=== PATIENT | female | born 1990 | race Caucasian/White ===

== ENCOUNTER 2016-12-12 07:20 | Emergency (ER) | payer OTHER ==
[~2016-12-12] VITALS: Ht 165.1 cm; Wt 59.0 kg
[~2016-12-12 07:20] MED LIST: AUGMENTIN 500-1 EACH PO
[2016-12-12 07:24] VITALS: BP 118/74
--- NOTE | 2016-12-12 07:51 | ED GENERAL ADULT ---
History of Present Illness General Chief Complaint: General Adult Stated Complaint: 2ND RABIES SHOT Source: patient Exam Limitations: no limitations Vital Signs & Intake/Output Vital Signs & Intake/Output Vital Signs Date Time Temp Pulse Resp B/P B/P Pulse O2 O2 Flow FiO2 Mean Ox Delivery Rate 12/12 0724 97.3 93 20 118/74 99 Room Air Allergies Coded Allergies: azithromycin (Severe, HIVES 12/09/16) Reconcile Medications Augmentin (Augmentin 500-125 Tablet) 500 MG-125 MG TABLET 1 TAB PO BID cat bite Triage Note: PT HERE FOR 2ND RABIES SHOT. Triage Nurses Notes Reviewed? yes : No Patient currently breastfeeds: No HPI: 12/12/16 8 AM 26-year-old female here for rabies vaccination. The patient is status post cat bite to the right thumb and left index finger. She has no complaints. The onset of the symptoms was abrupt, the duration has been in the last week, the severity is significant as her symptoms required her to come to the emergency department for care. Past History Travel History Traveled to [place] past 21 day No Medical History Any Pertinent Medical History? see below for history Neurological: NONE EENT: NONE Cardiovascular: NONE Respiratory: NONE Gastrointestinal: GERD Hepatic: NONE Renal: NONE Musculoskeletal: NONE Psychiatric: GENERALIZED ANXIETY Endocrine: NONE Blood Disorders: NONE Cancer(s): NONE Surgical History Surgical History: non-contributory Psychosocial History What is your primary language Tristanian Tobacco Use: Never used ETOH Use: occasional use Illicit Drug Use: denies illicit drug use Family History Hx Contributory? No Review of Systems Review of Systems Constitutional: Reports: no symptoms. EENTM: Reports: no symptoms. Respiratory: Reports: no symptoms. Cardiovascular: Reports: no symptoms. GI: Reports: no symptoms. Genitourinary: Reports: no symptoms. Musculoskeletal: Reports: no symptoms. Skin: Reports: see HPI. Neurological/Psychological: Reports: no symptoms. Hematologic/Endocrine: Reports: no symptoms. Immunologic/Allergic: Reports: no symptoms. All Other Systems: Reviewed and Negative Physical Exam Physical Exam General Appearance: well developed/nourished, no apparent distress, alert, awake Head: normal appearance Eyes: Bilateral: normal appearance, PERRL. Ears, Nose, Throat: normal ENT inspection Neck: normal inspection Respiratory: no respiratory distress Back: normal range of motion Extremities: Punctate abrasions to the right thumb and left index finger Neurologic/Psych: no motor/sensory deficits, awake, alert, oriented x 3 Skin: intact, normal color, warm/dry Core Measures ACS in differential dx? No CVA/TIA Diagnosis: No Severe Sepsis Present: No Septic Shock Present: No Progress Differential Diagnoses I considered the following diagnoses in my evaluation of the patient: [Rabies, cellulitis, foreign body] Plan of Care: Follow-up as instructed Initial ED EKG: none Departure Departure Disposition: HOME OR SELF CARE Condition: Stable Clinical Impression Primary Impression: Need for rabies vaccination Referrals: PATIENT HAS NO PRIMARY CARE DR (PCP/Family) Departure Forms: Customer Survey General Discharge Information Critical Care Note Critical Care Note Critical Care Time: non-applicable
== END 2016-12-12 08:07 ==
LOC: ERH 07:20
DX: Z23 Encounter for immunization (principal)
CPT/HCPCS: 90471; 99281

== ENCOUNTER 2017-11-08 20:23 | Emergency (ER) | payer OTHER ==
[2017-11-08 20:28] VITALS: BP 137/77
== END 2017-11-08 20:30 | disposition admitted as inpatient to this hospital (09) ==
LOC: ERH 20:23
DX: S91.112A Laceration without foreign body of left great toe without damage to nail, initial encounter (principal); W26.0XXA Contact with knife, initial encounter; Y93.G3 Activity, cooking and baking